=== PATIENT | female | born 1960 | race Caucasian/White ===

== ENCOUNTER 2017-07-11 06:16 | Day surgery (SDC) | payer MEDICARE, MEDICAID ==
[2017-07-11] MEDS ORDERED: LACTATED RINGERS 1,000 ML IV ONE (06:33)
[2017-07-11] MEDS ORDERED: fentaNYL 100 MCG/2 ML VIAL IVP ONE (07:43)
[2017-07-11] MEDS ORDERED: MIDAZOLAM 2 MG/2 ML VIAL IVP ONE (07:43)
[2017-07-11] MEDS ORDERED: PROPOFOL 200 MG/20 ML VIAL IVP ONE (07:43)
[2017-07-11 08:33] VITALS: BP 97/55
== END 2017-07-11 06:17 | disposition home or self-care (01) ==
LOC: SDS 06:16
PROVIDERS: ATTEND Surgery
PROC: 0DBN8ZX Excision of Sigmoid Colon, Via Natural or Artificial Opening Endoscopic, Diagnostic (ICD-10-PCS; principal; 2017-07-11 07:30)
DX: D12.5 Benign neoplasm of sigmoid colon (principal); K52.89 Other specified noninfective gastroenteritis and colitis; E11.9 Type 2 diabetes mellitus without complications; F17.210 Nicotine dependence, cigarettes, uncomplicated
CPT/HCPCS: 45384; J7120; 88305

== ENCOUNTER 2020-10-18 12:42 | Outpatient (CLI) | payer MEDICARE, MEDICAID ==
--- NOTE | 2020-10-18 17:12 | DEXA Report ---
PROCEDURE: Dexa Spine and/or Hip INDICATIONS: OSTEOPOROSIS TECHNIQUE: Dual energy x-ray absorptiometry (DXA) was performed on a Guide System. Regions measur ed are the AP Spine, femoral neck, and if needed forearm. COMPARISON: None. FINDINGS: Lumbar Spine: Bone Mineral Density 0.736 g/cm/cm,T score -3.7, osteoporosis Left Hip: Bone Mineral Density 0.679 g/cm/cm,T score -2.6, osteoporosis Left Femoral Neck: Bone Mineral Density 0.696 g/cm/cm, T score -2.5, osteoporosis (T score greater or equal to -1.0: NORMAL) (T score from -1.1 to -2.4: OSTEOPENIA) (T score less than or equal to -2.5 to: OSTEOPOROSIS) Impression: Osteoporosis over the lumbosacral spine overall, the left hip region in the left femoral neck. Patients with diagnosis of osteoporosis or osteopenia should have regular bone mineral density assess ment. For those eligible for Medicare, routine testing is allowed once every 2 years. Testing frequ ency can be increased for patients who have rapidly progressing disease or for those who are receivin g medical therapy to restore bone mass. Reviewed by: Adrián Culver MD on 10/18/2020 5:11 PM PDT Approved by: Adrián Culver MD on 10/18/2020 5:11 PM PDT Station ID: [id number]
== END 2020-10-18 12:43 | disposition home or self-care (01) ==
LOC: DI 12:42
PROVIDERS: ATTEND Physician Assistant
DX: M81.0 Age-related osteoporosis without current pathological fracture (principal); N95.8 Other specified menopausal and perimenopausal disorders

== ENCOUNTER 2021-12-27 11:29 | Outpatient (CLI) | payer MEDICARE, MEDICAID ==
[2021-12-27] MEDS ORDERED: ALBUTEROL 1 PUFF INH STA (13:45)
== END 2021-12-27 11:30 | disposition home or self-care (01) ==
LOC: RT 11:29
PROVIDERS: ATTEND Physician Assistant
DX: R06.02 Shortness of breath (principal)
CPT/HCPCS: 94060

== ENCOUNTER 2022-10-25 11:50 | Outpatient (CLI) | payer MEDICAID, MEDICARE ==
--- NOTE | 2022-10-25 19:02 | CT Report ---
PROCEDURE: Low Dose Lung Cancer Screen INDICATIONS: FORMER SMOKER meeting clinical criteria for screening TECHNIQUE: A CT scan of the chest was performed. Intravenous contrast media was not administered. Images were re corded and evaluated at appropriate window settings. Reformats: axial MIP of the chest, coronal and s agittal. For radiation dose reduction, the following was used: automated exposure control, adjustment of mA and/or kV according to patient size. COMPARISON: None. FINDINGS: Image quality: Excellent. Lungs and pleura: Moderate pulmonary emphysematous changes present. Several scattered pulmonary blebs apical scarring, right greater than left. Nodules are as follows: 3 mm pleural-based right lower lobe solid nodule on image 3/197c. 4 mm pleural-based solid right lower lobe pulmonary nodule on image 3/198 3 mm pleural-based right lower lobe solid nodule image 3/123 4 mm left lower lobe pleural-based nodule image 3/174 Mediastinum: Heart size is unremarkable in No pericardial effusion. No large vessel abnormality. No m ediastinal adenopathy by size criteria. Chest wall and lower neck: Thyroid is unremarkable. No axillary or supraclavicular adenopathy by size . Bones: No aggressive osseous abnormality. Upper Abdomen: Unremarkable. IMPRESSION: Bilateral small pleural-based nodules and a background of moderate pulmonary emphysema Lung RAD: Category 1: Benign findings Recommendation: Continue annual screening Other Significant Findings: Moderate pulmonary vascular with small pulmonary blebs Reviewed by: Errol Menjivar MD on 10/25/2022 6:00 PM AKSUMAN Approved by: Errol Menjivar MD on 10/25/2022 6:00 PM AKDT Station ID: [id number]
== END 2022-10-25 11:51 | disposition home or self-care (01) ==
LOC: DI 11:50
PROVIDERS: ATTEND Student in an Organized Health Care Education/Training Program
DX: Z12.2 Encounter for screening for malignant neoplasm of respiratory organs (principal); R91.8 Other nonspecific abnormal finding of lung field; J43.9 Emphysema, unspecified; Z87.891 Personal history of nicotine dependence

== ENCOUNTER 2023-12-11 12:51 | Outpatient (CLI) | payer MEDICARE ==
--- NOTE | 2023-12-12 08:15 | DEXA Report ---
PROCEDURE: Dexa Spine and/or Hip INDICATIONS: POST MENOPAUSAL TECHNIQUE: Dual energy x-ray absorptiometry (DXA) was performed on a [employer] System. Regions measur ed are the AP Spine, femoral neck, and if needed forearm. COMPARISON: DEXA 10/18/2020 FINDINGS: Lumbar Spine: Bone Mineral Density: 0.768 g/cm/cm,T score: -3.4. Since the most recent prior study, there has been a statistically significant increase in bone mineral density by 4.3 percent. Left Femoral Neck: Bone Mineral Density: 0.647 g/cm/cm, T score: -2.8. Left Hip: Bone Mineral Density: 0.679 g/cm/cm,T score: -2.6. There has been no statistically significant change in bone mineral density since the prior study. FRAX score not reported due to T score less than -2.5. (T score greater or equal to -1.0: NORMAL) (T score from -1.1 to -2.4: OSTEOPENIA) (T score less than or equal to -2.5 to: OSTEOPOROSIS) Impression: By WHO criteria, this patient has osteoporosis. Interval statistical increase in bone mineral density of the lumbar spine. No statistical interval ch pattie in bone mineral density of the hip. Patients with diagnosis of osteoporosis or osteopenia should have regular bone mineral density assess ment. For those eligible for Medicare, routine testing is allowed once every 2 years. Testing frequ ency can be increased for patients who have rapidly progressing disease or for those who are receivin g medical therapy to restore bone mass. Reviewed by: Abdoulaye Goodwin MD on 12/12/2023 8:14 AM PDT Approved by: Abdoulaye Goodwin MD on 12/12/2023 8:14 AM PDT Station ID: [id number]
== END 2023-12-11 12:52 | disposition home or self-care (01) ==
LOC: DI 12:51
PROVIDERS: ATTEND Student in an Organized Health Care Education/Training Program
DX: M81.0 Age-related osteoporosis without current pathological fracture (principal); Z78.0 Asymptomatic menopausal state

== ENCOUNTER 2023-12-11 12:51 | Outpatient (CLI) | payer MEDICARE ==
--- NOTE | 2023-12-12 12:13 | Mammography Report ---
BILATERAL DIGITAL SCREENING MAMMOGRAM 3D/2D: 12/11/2023 CLINICAL: Routine screening. Comparison is made to exam dated: 07/21/2015 mammogram - [facility]. There are scattered areas of fibroglandular density (category b / 25%-50% glandular tissue). No significant masses, calcifications, or other findings are seen in either breast. There has been no significant interval change. IMPRESSION: NEGATIVE There is no mammographic evidence of malignancy. A 1 year screening mammogram is recommended. Based on the Tyrer Cuzick model (a risk assessment model) the patient's lifetime risk is 4.6% and her 10 year risk is 2.0%. According to the ACR, ACS, and NCCN guidelines, an annual breast MRI exam giorgio g with mammogram is recommended if the patient's lifetime risk is 20% or greater. This exam was interpreted at Station ID: [id number]. NOTE: For mammograms, a report in lay terms will be sent to the patient. Approximately 15% of breast malignancies will not be visualized mammographically. In the management of a palpable breast mass, a negative mammogram must not discourage biopsy of a clinically suspicious lesion. Electronically Signed By: Arti mcallister/pasha:12/11/2023 17:49:37 letter sent: No_Letter ACR BI-RADS Category 1: Negative PARENCHYMAL PATTERN: (A) - The breast(s) demonstrate(s) scattered fibroglandular densities. BI-RADS CATEGORY: (1) - 1 RECOMMENDATION: (ANNUAL) - Recommend routine annual screening mammography. [id number] 1 year screening LATERALITY: (B)
== END 2023-12-11 12:52 | disposition home or self-care (01) ==
LOC: DI 12:51
PROVIDERS: ATTEND Student in an Organized Health Care Education/Training Program
DX: Z12.31 Encounter for screening mammogram for malignant neoplasm of breast (principal)

== ENCOUNTER 2023-12-11 12:52 | Outpatient (CLI) | payer MEDICARE ==
--- NOTE | 2023-12-11 23:17 | CT Report ---
PROCEDURE: Lung Cancer Screen INDICATIONS: SMOKER TECHNIQUE: A CT scan of the chest was performed. Intravenous contrast media was not administered. Images were re corded and evaluated at appropriate window settings. Reformats: axial MIP of the chest, coronal and s agittal. For radiation dose reduction, the following was used: automated exposure control, adjustment of mA and/or kV according to patient size. COMPARISON: 10/25/2022 FINDINGS: Image quality: Diagnostic. Lungs and pleura: No pleural effusions. No pneumothorax. Upper lobe predominant pulmonary emphysemat ous changes. Redemonstration of multiple small predominantly peripheral pulmonary nodules. Largest in the left lower lobe measures 4 mm (78/series 4). Largest nodule in the right is seen in the right lo wer lobe, somewhat pleural-based measuring approximately 4 mm (79/series 4). No new suspicious or enl arging pulmonary nodules identified. No septal thickening or nodularity. Mediastinum: Heart size is normal. No pericardial effusion. No large vessel abnormality. No mediastin al adenopathy by size criteria. Chest wall and lower neck: Thyroid is unremarkable. No axillary or supraclavicular adenopathy by size . Stable appearance of calcified right axillary lymph node. Bones: No aggressive osseous abnormality. Upper Abdomen: Unremarkable. IMPRESSION: Mild upper lobe predominant pulmonary emphysema with multiple stable small pleural-based nodules. Lung RAD: 2 - Benign. Recommendation: Continue annual screening in 12 Months with LDCT Non-Lung Significant Findings: None. Reviewed by: Ji Keita MD on 12/11/2023 10:15 PM CASE Approved by: Ji Keita MD on 12/11/2023 10:15 PM AKSUMAN Station ID: [id number]
== END 2023-12-11 12:53 | disposition home or self-care (01) ==
LOC: DI 12:52
PROVIDERS: ATTEND Student in an Organized Health Care Education/Training Program
DX: Z12.2 Encounter for screening for malignant neoplasm of respiratory organs (principal); Z87.891 Personal history of nicotine dependence; J43.9 Emphysema, unspecified; R91.8 Other nonspecific abnormal finding of lung field; M81.0 Age-related osteoporosis without current pathological fracture; Z78.0 Asymptomatic menopausal state